=== PATIENT | female | born 2000 | race Caucasian/White ===

== ENCOUNTER 2021-02-23 13:54 | Emergency (ER) | payer BC ==
[~2021-02-23] VITALS: Ht 167.6 cm; Wt 62.1 kg
[2021-02-23 14:03] VITALS: BP 120/78
[2021-02-23] MEDS ORDERED: ANUSOL-HC30 GM TOP (14:14)
[2021-02-23] MEDS ORDERED: ANUSOL-HC25 MG RECTAL (14:14)
[2021-02-23] MEDS ORDERED: COLACE100 MG PO (14:17)
== END 2021-02-23 14:23 | disposition home or self-care (01) ==
LOC: ER 13:54
DX: K64.9 Unspecified hemorrhoids (principal)

== ENCOUNTER 2021-03-24 18:03 | Emergency (ER) | payer BC, OTHER ==
[~2021-03-24] VITALS: Ht 165.1 cm; Wt 63.5 kg
[~2021-03-24 18:03] MED LIST: ANUSOL-HC25 MG RECTAL; ANUSOL-HC30 GM TOP; COLACE100 MG PO
[2021-03-24 19:13] LABS: ABSOLUTE NEUTROPHILS 4.5 thou/uL (1.4-8.2); BASOPHILS 0.7 % (0.0-2.0); EOSINOPHILS 4.2 % (0.0-3.0); HEMATOCRIT 39.9 % (37.0-47.0); HEMOGLOBIN 13.3 gm/dL (12.0-15.0); LYMPHOCYTES 31.2 % (24.0-44.0); MCH 31.5 pg (26.0-34.0); MCHC 33.4 g/dL (28.0-37.0); MCV 94.4 fL (80.0-100.0); MONOCYTES 8.8 % (1.0-8.0); PLATELET COUNT 268 thou/uL (150-400); POLYS 55.1 % (36.0-66.0); RBC 4.23 mil/uL (4.20-5.00); RDW 13.2 % (10.5-14.5); WBC 8.2 thou/uL (4.0-11.0)
[2021-03-24 19:18] LABS: CALCIUM 8.8 mg/dL (8.5-10.1); CREATININE 0.7 mg/dL (0.6-1.0); POTASSIUM 4.2 mmol/L (3.5-5.1)
[2021-03-24 19:24] LABS: TOTAL BILIRUBIN 0.3 mg/dL (0.2-1.0); TOTAL PROTEIN 7.7 g/dL (6.4-8.2)
[2021-03-24] MEDS ORDERED: TORADOL 10 MG T10 MG PO (23:00)
[2021-03-24 23:24] VITALS: BP 125/76
== END 2021-03-24 23:25 | disposition home or self-care (01) ==
LOC: ER 18:03
PROVIDERS: Physician Assistant
DX: K60.2 Anal fissure, unspecified (principal); K64.4 Residual hemorrhoidal skin tags; F12.90 Cannabis use, unspecified, uncomplicated